=== PATIENT | female | born 1985 | race Caucasian/White ===

== ENCOUNTER 2018-12-03 18:40 | Emergency (ER) | payer SELFPAY ==
[~2018-12-03 18:40] MED LIST: SEROQUEL25 MG PO
--- OUTSIDE RECORDS SUMMARY | 2018-12-03 18:42 | XMS REPORT ---
Author [facility] Address Unknown Phone Unavailable Care Team Providers Care Scale Expert Name Role Phone Unavailable Unavailable Payers Payer Name Policy Type Policy Number Effective Date Expiration Date Problems This patient has no known problems. Allergies, Adverse Reactions, Alerts Allergy Name Allergy Type Status Severity Reaction(s) Onset Date Inactive Date Treating Clinician Comments morphine DA Active U 2018-02-09 00:00:00 morphine DA Active U 2010-05-09 00:00:00 No Known Contrast Allergies DA Active U 2008-08-06 00:00:00 No Known Food Allergies DA Active U 2008-08-06 00:00:00 No Known Other Allergies DA Active U 2008-08-06 00:00:00 Medications This patient has no known medications.
== END 2018-12-03 20:53 | disposition short-term general hospital (02) ==
LOC: ER 18:40
DX: R10.9 Unspecified abdominal pain (principal)